=== PATIENT | female | born 1995 | race Caucasian/White ===

== ENCOUNTER 2020-10-30 15:35 | Emergency (ER) | payer SELFPAY ==
[~2020-10-30] VITALS: Ht 157.5 cm; Wt 48.2 kg
[2020-10-30 15:57] VITALS: BP 106/62
== END 2020-10-30 18:57 | disposition left against medical advice (07) ==
LOC: ED 18:22
DX: S29.9XXA Unspecified injury of thorax, initial encounter (principal); W18.30XA Fall on same level, unspecified, initial encounter; Y93.89 Activity, other specified; Y92.009 Unspecified place in unspecified non-institutional (private) residence as the place of occurrence of the external cause; Y99.8 Other external cause status
CPT/HCPCS: 71046; 99284